=== PATIENT | female | born 1990 | race African-American/Black ===

== ENCOUNTER 2016-08-12 23:18 | Emergency (ER) | payer OTHER ==
[~2016-08-12] VITALS: Ht 160 cm; Wt 67.1 kg
[2016-08-12 23:39] VITALS: BP 131/85
--- NOTE | 2016-08-12 23:39 | PHYS DOC ---
Adult General Chief Complaint Chief Complaint: KNEE INJURY [facility] HPI Patient is a 25 year old female presents emergency room tonight with complaint of left knee pain after slipping and striking her left knee on the floor while at work. Patient states this happened within the past hour. Patient denies striking her head or loss of consciousness. She denies any additional injuries or concerns. Patient denies any history of problems with her left knee such as fractures, dislocations or previous surgeries. Review of Systems Review of Systems Constitutional: Denies fever or chills [] Eyes: Denies change in visual acuity, redness, or eye pain [] HENT: Denies nasal congestion or sore throat [] Respiratory: Denies cough or shortness of breath [] Cardiovascular: No additional information not addressed in HPI [] GI: Denies abdominal pain, nausea, vomiting, bloody stools or diarrhea [] : Denies dysuria or hematuria [] Musculoskeletal: Denies back pain or joint pain [] Integument: Denies rash or skin lesions [] Neurologic: Denies headache, focal weakness or sensory changes [] Endocrine: Denies polyuria or polydipsia [] Allergies Allergies Allergies Coded Allergies Type Severity Reaction Last Updated Verified No Known Drug Allergies 08/12/16 No Physical Exam Physical Exam Constitutional: Well developed, well nourished, no acute distress, non-toxic appearance. [] HENT: Normocephalic, atraumatic, bilateral external ears normal, oropharynx moist, no oral exudates, nose normal. [] Eyes: PERRLA, EOMI, conjunctiva normal, no discharge. [] Neck: Normal range of motion, no tenderness, supple, no stridor. [] Cardiovascular:Heart rate regular rhythm, no murmur [] Lungs & Thorax: Bilateral breath sounds clear to auscultation [] Abdomen: Bowel sounds normal, soft, no tenderness, no masses, no pulsatile masses. [] Skin: Warm, dry, no erythema, no rash. [] Back: No tenderness, no CVA tenderness. [] Extremities: Left knee with bruising and mild swelling to the inferior pole of the patella, patellar region into the lateral aspect of the patella. There is no palpable defect, deformity, instability or crepitus. Extensor mechanism is intact. There is no high riding patella. Ligaments are stable solid endpoints. Neurologic: Alert and oriented X 3, normal motor function, normal sensory function, no focal deficits noted. [] Psychologic: Affect normal, judgement normal, mood normal. [] Current Patient Data Vital Signs Vital Signs Date Time Temp Pulse Resp B/P (MAP) Pulse Ox O2 Delivery O2 Flow Rate FiO2 08/12/16 23:39 98.4 89 16 99 Room Air 98.4 EKG EKG [] Radiology/Procedures Radiology/Procedures 3 views of left knee were performed with adequate technique. There is no evidence of acute bony injury. There is a loose, smooth osteophyte just superior to the tibial tubercle. Course & Med Decision Making Course & Med Decision Making Pertinent Labs and Imaging studies reviewed. (See chart for details) [] Dragon Disclaimer Dragon Disclaimer This electronic medical record was generated, in whole or in part, using a voice recognition dictation system. Departure Departure Impression: Primary Impression: Contusion of left knee Disposition: HOME, SELF-CARE Condition: GOOD Patient Instructions: Contusion, [id number] Additional Instructions: 1. X-ray of your knee here today shows no broken bones or dislocations. 2. Review the discharge instructions provided for self-care and reasons to return the emergency department. 3. Take the medication as prescribed. 4. Apply ice packs every 2 hours for 20-30 minutes at a time. 5. Follow-up with Workmen's Comp. provider with an this next week. Scripts Naproxen (NAPROXEN) 500 Mg Tablet 1 TAB PO BID for knee pain, #30 TAB 1 Refill Prov: JUAN CARLOS GILLILAND 08/13/16 JUAN CARLOS GILLILAND August 12, 2016 23:39
[2016-08-13] MEDS ORDERED: NAPR500T3 PO (00:19)
--- NOTE | 2016-08-13 08:11 | RAD ---
Indication fall, pain. AP oblique and lateral views of the left knee were obtained. No bony abnormality is seen
== END 2016-08-13 00:32 | disposition home or self-care (01) ==
LOC: ER 23:18
DX: S80.02XA Contusion of left knee, initial encounter (principal); W01.0XXA Fall on same level from slipping, tripping and stumbling without subsequent striking against object, initial encounter; Y93.89 Activity, other specified; Y92.89 Other specified places as the place of occurrence of the external cause; Y99.8 Other external cause status
CPT/HCPCS: 73562; 99284